=== PATIENT | female | born 1970 | race Caucasian/White ===

== ENCOUNTER 2017-03-16 15:06 | Emergency (ER) | payer MEDICAID ==
[~2017-03-16 15:06] MED LIST: CIPROFLOXACIN500 MG PO; DEC4I IV; FAMOTIDINE20 MG PO; HYDROCODONE/ACE1 TA2 PO; LEXAPRO10 MG PO; NAPROXEN500 MG PO; PANTOPRAZOLE SO40 M1 PO; RANITIDINE HCL150 M1 PO
[2017-03-16 17:55] VITALS: BP 153/98
== END 2017-03-16 17:55 | disposition home or self-care (01) ==
LOC: ED 15:06
DX: R30.0 Dysuria (principal); Z85.118 Personal history of other malignant neoplasm of bronchus and lung; Z79.899 Other long term (current) drug therapy

== ENCOUNTER 2017-11-14 19:55 | Emergency (ER) | payer MEDICAID ==
[~2017-11-14] VITALS: Ht 154.9 cm; Wt 79.0 kg
[2017-11-14 21:00] VITALS: Ht 154.9 cm; Wt 79.0 kg
[2017-11-14 23:32] VITALS: BP 144/90
== END 2017-11-14 23:32 | disposition home or self-care (01) ==
LOC: ED 19:55
DX: N39.0 Urinary tract infection, site not specified (principal)
CPT/HCPCS: J0696

== ENCOUNTER 2018-01-20 11:33 | Emergency (ER) | payer MEDICAID ==
[~2018-01-20] VITALS: Ht 160 cm; Wt 80.3 kg
[2018-01-20 11:40] VITALS: Ht 160 cm; Wt 80.3 kg
[2018-01-20 13:12] VITALS: BP 145/65
[2018-01-20 13:16] LABS: microscopic required? NO
[2018-01-20 13:36] LABS: UA SPECIFIC GRAVITY <=1.005 (1.005-1.035); urine erythrocyte NEGATIVE (NEGATIVE)
== END 2018-01-20 13:12 | disposition home or self-care (01) ==
LOC: ED 11:33
PROVIDERS: Emergency Medicine
DX: R30.0 Dysuria (principal); I10 Essential (primary) hypertension; C78.00 Secondary malignant neoplasm of unspecified lung; C79.89 Secondary malignant neoplasm of other specified sites; C41.2 Malignant neoplasm of vertebral column
CPT/HCPCS: 87491; 87591